=== PATIENT | female | born 1950 | race Caucasian/White ===

== ENCOUNTER 2016-09-08 18:17 | Emergency (ER) | payer OTHER, BC ==
[~2016-09-08] VITALS: Ht 160 cm; Wt 70.6 kg
[~2016-09-08 18:17] MED LIST: GLUCOPHAGE500 MG PO; PRAVACHOL20 MG PO; PREVACID30 MG PO; PROZAC40 MG PO; VERAPAMIL HCL40 MG PO; [UNRECOGNIZED DRUG - REMARK] PO
[2016-09-08] MEDS ORDERED: KEFLEX500 MG PO (22:50)
[2016-09-08 23:20] VITALS: BP 143/67
== END 2016-09-08 23:21 | disposition home or self-care (01) ==
LOC: EME 18:17
PROC: 0H97XZZ Drainage of Abdomen Skin, External Approach (ICD-10-PCS; principal; 2016-09-08)
DX: L03.311 Cellulitis of abdominal wall (principal); S30.1XXA Contusion of abdominal wall, initial encounter; W26.8XXA Contact with other sharp object(s), not elsewhere classified, initial encounter; Z79.01 Long term (current) use of anticoagulants; Z86.718 Personal history of other venous thrombosis and embolism; I10 Essential (primary) hypertension; E78.5 Hyperlipidemia, unspecified; E11.9 Type 2 diabetes mellitus without complications
CPT/HCPCS: 76705; 87070; 87075; 87205; 99281; 99284

== ENCOUNTER → 2017-03-28 | Outpatient (CLI) | payer OTHER, BC ==
[~2017-03-28] MED LIST changes: +KEFLEX500 MG PO
== END | disposition home or self-care (01) ==
LOC: NUC 10:54
DX: R94.2 Abnormal results of pulmonary function studies (principal)
CPT/HCPCS: 78582; A9540; A9567